=== PATIENT | female | born 1955 | race Caucasian/White ===

== ENCOUNTER → 2021-04-17 13:48 | Outpatient (BNVA) | payer OTHER, MEDICARE, SELFPAY | PROVIDERS: Visit Provider Internal Medicine | DX: R76.8 Other specified abnormal immunological findings in serum (principal); M25.50 Pain in unspecified joint; Z79.899 Other long term (current) drug therapy; Z11.59 Encounter for screening for other viral diseases; Z11.1 Encounter for screening for respiratory tuberculosis | CPT/HCPCS: 36415; 99204 ==

== ENCOUNTER 2021-04-17 15:15 | Outpatient (CLI) | payer MEDICARE, SELFPAY ==
--- NOTE | 2021-04-17 15:31 | XR_ITS ---
WS: [id number] TECHNIQUE: 2 views of the left hand CLINICAL INFORMATION: R76.8 - Other specified abnormal immunological findings i... COMPARISON: None. FINDINGS: Osteopenia. Degenerative arthritis radiocarpal joint. Normal scaphoid and lunate. Degenerative narrow ing involving the PIP and DIP joints. Normal MCP joints. Minimal erosive changes. XR/XR hand LT 2V [id number] IMPRESSION: 1. Minimal erosive changes. 2. Moderate degenerative arthritis radiocarpal joint. 3. Joint space narrowing PIP and DIP joints.
--- NOTE | 2021-04-17 15:31 | XR_ITS ---
WS: [id number] TECHNIQUE: 2 views of the right hand CLINICAL INFORMATION: R76.8 - Other specified abnormal immunological findings i... COMPARISON: None. FINDINGS: Osteopenia. Degenerative arthritis radiocarpal joint. Normal scaphoid and lunate. Degenerative arthri tis first CMC and STT. IP joint narrowing involving the PIP and DIP joints. Minimal erosive changes. XR/XR hand RT 2V [id number] IMPRESSION: 1. Joint space narrowing worse involving the radiocarpal joint, first CMC,STT, and PIP, DIP joints. 2. Minimal erosive changes.
--- NOTE | 2021-04-17 15:31 | XR_ITS ---
WS: [id number] Humerus RIGHT TECHNIQUE: 2 views of the right humerus CLINICAL INFORMATION: R76.8 - Other specified abnormal immunological findings i... COMPARISON: None. FINDINGS: Normal anatomic alignment. Normal right humerus. No acute fracture dislocation. XR/[place] [id number] IMPRESSION: Normal right humerus.
--- NOTE | 2021-04-17 15:31 | XR_ITS ---
WS: [id number] FOOT LEFT TECHNIQUE: 2 views of the left foot CLINICAL INFORMATION: M25.50 - Pain in unspecified joint COMPARISON: None. FINDINGS: Osteopenia. Minimal erosive changes. Soft tissue edema. Degenerative narrowing involving the PIP and DIP joints. Tiny plantar calcaneal spur. Dorsal calcaneal spurring. XR/XR foot LT 2V [id number] IMPRESSION: 1. Minimal erosive changes. 2. Joint space narrowing worse involving the PIP and DIP joints. 3. Plantar calcaneal spurring.
--- NOTE | 2021-04-17 15:31 | XR_ITS ---
WS: [id number] FOOT RIGHT TECHNIQUE: 2 views of the right foot CLINICAL INFORMATION: M25.50 - Pain in unspecified joint COMPARISON: None. FINDINGS: Osteopenia. Soft tissue edema. Normal metatarsals. Moderate degenerative narrowing PIP and DIP joints . Normal navicular. Normal tarsal bones. XR/XR foot RT 2V [id number] IMPRESSION: 1. Minimal erosive changes. 2. Joint space narrowing worse involving the PIP and DIP joints.
== END 2021-04-17 15:16 | disposition home or self-care (01) ==
PROVIDERS: Visit Provider Internal Medicine
DX: M25.50 Pain in unspecified joint (principal); R76.8 Other specified abnormal immunological findings in serum; Z11.59 Encounter for screening for other viral diseases; Z11.1 Encounter for screening for respiratory tuberculosis
CPT/HCPCS: 36415; 73060; 73120; 73620; 80053; 85025; 85651; 86140; 86431; 86480; 86704; 86803; 87340

== ENCOUNTER → 2021-07-10 15:23 | Outpatient (BNVA) | payer OTHER, MEDICARE, SELFPAY | PROVIDERS: Visit Provider Internal Medicine | DX: M05.9 Rheumatoid arthritis with rheumatoid factor, unspecified (principal); R76.8 Other specified abnormal immunological findings in serum; Z79.899 Other long term (current) drug therapy | CPT/HCPCS: 99214 ==

== ENCOUNTER → 2022-02-21 14:56 | Outpatient (BNVA) | payer OTHER, SELFPAY | PROVIDERS: Visit Provider Internal Medicine | DX: M05.9 Rheumatoid arthritis with rheumatoid factor, unspecified (principal); R53.83 Other fatigue; Z79.899 Other long term (current) drug therapy; M77.40 Metatarsalgia, unspecified foot; Z87.891 Personal history of nicotine dependence | CPT/HCPCS: 99214 ==

== ENCOUNTER → 2023-02-26 14:13 | Outpatient (BNVA) | payer OTHER, SELFPAY | PROVIDERS: PCP Registered Nurse; Visit Provider Internal Medicine | DX: R79.89 Other specified abnormal findings of blood chemistry (principal); R53.83 Other fatigue; R76.8 Other specified abnormal immunological findings in serum | CPT/HCPCS: 99213 ==

== ENCOUNTER → 2023-06-04 15:34 | Outpatient (BNVA) | payer OTHER, SELFPAY | PROVIDERS: PCP Registered Nurse; Visit Provider Internal Medicine | DX: R76.8 Other specified abnormal immunological findings in serum (principal); R53.83 Other fatigue; M05.9 Rheumatoid arthritis with rheumatoid factor, unspecified | CPT/HCPCS: 99214 ==

== ENCOUNTER → 2024-05-03 10:06 | Outpatient (BNVA) | payer SELFPAY | PROVIDERS: PCP Registered Nurse; Visit Provider Internal Medicine Rheumatology | DX: Z11.1 Encounter for screening for respiratory tuberculosis (principal); Z11.59 Encounter for screening for other viral diseases; Z79.899 Other long term (current) drug therapy; M06.9 Rheumatoid arthritis, unspecified | CPT/HCPCS: 36415; 80076; 82565; 85025; 85651; 86140; 86480; 86704; 86803; 87340 ==

== ENCOUNTER → 2024-09-13 09:45 | Outpatient (BNVA) | payer OTHER, MEDICARE, SELFPAY | PROVIDERS: PCP Registered Nurse; Visit Provider Internal Medicine Rheumatology | DX: M05.79 Rheumatoid arthritis with rheumatoid factor of multiple sites without organ or systems involvement (principal); Z79.899 Other long term (current) drug therapy; Z71.85 Encounter for immunization safety counseling; Z79.620 Long term (current) use of immunosuppressive biologic | CPT/HCPCS: 36415; 80076; 82565; 85025; 85651; 86140; 99214 ==

== ENCOUNTER → 2025-01-10 10:43 | Outpatient (BNVA) | payer OTHER, MEDICARE, SELFPAY | PROVIDERS: PCP Registered Nurse; Visit Provider Internal Medicine Rheumatology | DX: M05.79 Rheumatoid arthritis with rheumatoid factor of multiple sites without organ or systems involvement (principal); Z79.899 Other long term (current) drug therapy; Z71.85 Encounter for immunization safety counseling | CPT/HCPCS: 36415; 80076; 82565; 85025; 85651; 86140; 99214 ==

== ENCOUNTER → 2025-07-06 12:46 | Outpatient (BNVA) | payer OTHER, SELFPAY | PROVIDERS: PCP Registered Nurse; Visit Provider Internal Medicine Rheumatology | DX: M05.79 Rheumatoid arthritis with rheumatoid factor of multiple sites without organ or systems involvement (principal); Z79.899 Other long term (current) drug therapy; Z71.85 Encounter for immunization safety counseling; R76.8 Other specified abnormal immunological findings in serum | CPT/HCPCS: 36415; 80076; 82306; 82565; 85025; 85651; 86140; 99214 ==